=== PATIENT | female | born 1965 | race Caucasian/White ===

== ENCOUNTER 2020-09-15 19:22 | Emergency (ER) | payer OTHER ==
[2020-09-15 19:27] VITALS: BP 127/77; PULSE 77; TEMP 98.2; BMI 31.4
[2020-09-15] MEDS ORDERED: SODIUM CHLORIDE 1,000 ML IV STA (20:59)
[2020-09-15] MEDS ORDERED: ACETAMINOPHEN 500 MG TABLET (FP) PO ONE (21:22)
[2020-09-15 21:46] LABS: EPI CELLS 14 /uL (0-25.1); HYALINE CASTS 4 /uL (0-3.1); PH,URINE 6.5 (5.0-8.0); URINE APPEARANCE CLOUDY; URINE BACTERIA 1008 /uL (0-1359); URINE BILIRUBIN NEGATIVE (NEGATIVE); URINE COLOR ORANGE; URINE GLUCOSE (UA) NEGATIVE (NEGATIVE); URINE KETONE NEGATIVE (NEGATIVE); URINE LEUK ESTERASE 2+ (NEGATIVE); URINE NITRITE NEGATIVE (NEGATIVE); URINE PROTEIN 3+ (NEGATIVE); URINE RBC 3524 /uL (0-23.9); URINE WBC 402 /uL (0-25.8)
[2020-09-15] MEDS ORDERED: ACETAMINOPHEN 325 MG TABLET (FP) ONE (21:47)
[2020-09-15 21:52] LABS: HCG,QUALITATIVE URINE Negative
[2020-09-15] MEDS ORDERED: CEFTRIAXONE 1 GM in DEXTROSE 5%-WATER - 100 ML IVPB ONE (22:25)
[2020-09-15 23:00] LABS: BASO % 0.2 % (0-2.0); EOS % 1.4 % (0-4.5); HEMATOCRIT 43.1 % (32.4-45.2); HEMOGLOBIN 14.1 GM/dL (10.7-15.3); LYMPH % 29.6 % (8-40); MCH 29.5 pg (25.7-33.7); MCHC 32.7 g/dl (32.0-36.0); MEAN CELL VOLUME 90.2 fl (80-96); MEAN PLT VOLUME 7.9 fl (7.5-11.1); MONO % 8.3 % (3.8-10.2); NEUT % 60.5 % (42.8-82.8); PLATELET COUNT 283 K/MM3 (134-434); RBC 4.77 M/mm3 (3.60-5.2); RDW 12.8 % (11.6-15.6); WHITE BLOOD COUNT 11.7 K/mm3 (4.0-10.0)
[2020-09-15 23:04] LABS: POTASSIUM 4.2 mmol/L (3.5-5.1)
[2020-09-15 23:06] LABS: BLOOD UREA NITROGEN 19.3 mg/dL (7-18); CALCIUM 9.8 mg/dL (8.5-10.1)
[2020-09-15 23:10] LABS: CREATININE 0.9 mg/dL (0.55-1.3)
[2020-09-15 23:11] LABS: BILIRUBIN,TOTAL 0.4 mg/dL (0.2-1); TOT PROT 7.4 g/dl (6.4-8.2)
[2020-09-16] MEDS ORDERED: FAMOTIDINE 20 MG/50 ML IVPB 20 MG/50 ML MG IVPB ONE ×2 (01:07→01:25)
[2020-09-16] MEDS ORDERED: methylPREDNISolone NA SUCC 125 MG/2 ML VIAL IVPUSH ONE (01:07)
[2020-09-16] MEDS ORDERED: methylPREDNISolone NA SUCC 125 MG/2 ML VIAL ONE (01:20)
== END 2020-09-16 01:33 | disposition home or self-care (01) ==
LOC: JERFT 19:22 → JER 19:22
PROC: 3E033GC Introduction of Other Therapeutic Substance into Peripheral Vein, Percutaneous Approach (ICD-10-PCS; principal; 2020-09-15)
PROC: 3E03329 Introduction of Other Anti-infective into Peripheral Vein, Percutaneous Approach (ICD-10-PCS; 2020-09-15)
PROC: 3E033GC Introduction of Other Therapeutic Substance into Peripheral Vein, Percutaneous Approach (ICD-10-PCS; 2020-09-15)
PROC: 3E0337Z Introduction of Electrolytic and Water Balance Substance into Peripheral Vein, Percutaneous Approach (ICD-10-PCS; 2020-09-15)
DX: R30.0 Dysuria (principal); N39.0 Urinary tract infection, site not specified
CPT/HCPCS: 36415; 74176-TC; 80053; 81003; 84703; 85025; 87086; 87186; 99284-25

== ENCOUNTER 2023-03-14 18:55 | Emergency (ER) | payer OTHER ==
[2023-03-14 19:05] VITALS: BP 131/56; PULSE 64; RESP 20; TEMP 98.2; BMI 24.4
[2023-03-14] MEDS ORDERED: ACETAMINOPHEN 325 MG TABLET (FP) PO ONE (19:25)
[2023-03-14] MEDS ORDERED: oxyCODONE HCL 5 MG TABLET PO ONE (19:28)
[2023-03-14] MEDS ORDERED: ASPIRIN 81 MG CHEWABLE TABLETS PO ONE (19:28)
[2023-03-14] MEDS ORDERED: ASPIRIN 81 MG CHEWABLE TABLETS ONE (19:39)
[2023-03-14] MEDS ORDERED: oxyCODONE HCL 5 MG TABLET ONE (19:39)
[2023-03-14] MEDS ORDERED: LIDOCAINE 5% TOPICAL PATCH ONE (20:47)
[2023-03-14] MEDS ORDERED: LIDOCAINE 5% TOPICAL PATCH TP ONE (20:48)
[2023-03-14] MEDS ORDERED: LIDOCAINE PATCH REMOVAL MC ONE (22:00)
== END 2023-03-14 21:53 | disposition home or self-care (01) ==
LOC: JER 18:55
DX: M79.604 Pain in right leg (principal)
CPT/HCPCS: 93971-TC; 99284-25